=== PATIENT | female | born 1975 | race Caucasian/White ===

== ENCOUNTER → 2017-04-15 | Outpatient (CLI) | payer OTHER ==
[~2017-04-15] MED LIST: AMPH1TAB83 PO; BUPR150T7 PO; CHOL100027 PO; ONDA4TAB7 SL; OXYC-609 PO; TRAM-10 PO
== END | disposition home or self-care (01) ==
LOC: C.PAPS 16:50
PROVIDERS: ATTEND Physician Assistant
DX: Z12.4 Encounter for screening for malignant neoplasm of cervix (principal)